=== PATIENT | female | born 1945 | race Caucasian/White ===

== ENCOUNTER 2023-02-25 13:02 | Outpatient (OUT) | payer MEDICARE, SELFPAY ==
--- NOTE | 2023-02-25 13:20 | XR_ITS ---
[place] [address] Patient Name: FERCHO MALONE MRN: [id number] date: 1945 Sex: F Assigned Patient Location: [facility] Current Patient Location: [facility] Accession/Order Number: [id number] Exam Date: 02/25/2023 13:30 Report Date: 02/26/2023 10:26 At the request of: CHARLIE BLAKE Procedure: XR thoracic spine 2V EXAMINATION: XR thoracic spine 2V, XR lumbar spine min 4V HISTORY: Left Hip Pain, Left Lower Back Pain COMPARISON: No relevant comparison available. FINDINGS: BONES: Mild left convex curvature of thoracic spine in mild right convex curvature of lumbar spine. No fracture or spondylolisthesis. Mild degenerative facet arthropathy L3-4 through L5-S1. DISC SPACES: Multilevel mild degenerative disc disease of mid and lower thoracic spine. Moderate narrowing L5-S1. PARASPINOUS: Negative. No paraspinous abnormality is seen. OTHER: Negative. XR/XR thoracic spine 2V IMPRESSION: 1. Mild S-shaped curvature of the thoracic lumbar spine. 2. Mild degenerative disc disease of mid and lower thoracic spine; nonspecific. 3. L5-S1 moderate degenerative disc disease and mild degenerative facet arthropathy. Consider MRI for further evaluation. Electronically authenticated by: RUBEN ALAN Date: 02/26/2023 10:26
--- NOTE | 2023-02-25 13:20 | XR_ITS ---
The [place] [address] Patient Name: FERCHO MALONE MRN: [id number] date: 1945 Sex: F Assigned Patient Location: [facility] Current Patient Location: [facility] Accession/Order Number: [id number] Exam Date: 02/25/2023 13:30 Report Date: 02/26/2023 10:26 At the request of: CHARLIE BLAKE Procedure: XR lumbar spine min 4V EXAMINATION: XR thoracic spine 2V, XR lumbar spine min 4V HISTORY: Left Hip Pain, Left Lower Back Pain COMPARISON: No relevant comparison available. FINDINGS: BONES: Mild left convex curvature of thoracic spine in mild right convex curvature of lumbar spine. No fracture or spondylolisthesis. Mild degenerative facet arthropathy L3-4 through L5-S1. DISC SPACES: Multilevel mild degenerative disc disease of mid and lower thoracic spine. Moderate narrowing L5-S1. PARASPINOUS: Negative. No paraspinous abnormality is seen. OTHER: Negative. XR/XR lumbar spine min 4V IMPRESSION: 1. Mild S-shaped curvature of the thoracic lumbar spine. 2. Mild degenerative disc disease of mid and lower thoracic spine; nonspecific. 3. L5-S1 moderate degenerative disc disease and mild degenerative facet arthropathy. Consider MRI for further evaluation. Electronically authenticated by: RUBEN ALAN Date: 02/26/2023 10:26
--- NOTE | 2023-02-25 13:20 | XR_ITS ---
The [address] [address] Patient Name: FERCHO MALONE MRN: [id number] date: 1945 Sex: F Assigned Patient Location: [facility] Current Patient Location: [facility] Accession/Order Number: [id number] Exam Date: 02/25/2023 13:30 Report Date: 02/26/2023 10:20 At the request of: CHARLIE BLAKE Procedure: XR hip LT min 2V PROCEDURE: XR hip LT min 2V HISTORY: Left Hip Pain, Left Lower Back Pain , chronic COMPARISON: None. FINDINGS: BONES:Prominent lateral extension versus degenerative osteophytes involving the superior rim of acetabulum. No fracture, dislocation, or significant joint space narrowing. Unremarkable femoral head. SOFT TISSUES:No visible soft tissue swelling. EFFUSION:None visible. OTHER: Negative. XR/XR hip LT min 2V IMPRESSION: 1. Prominent roof of acetabulum protruding laterally versus osteophytes, which may cause impingement during abduction. 2. No significant joint space narrowing or articular surface irregularity. Electronically authenticated by: RUBEN ALAN Date: 02/26/2023 10:20
== END 2023-02-25 13:03 | disposition home or self-care (01) ==
LOC: RAD 13:10
PROVIDERS: PCP Nurse Practitioner; Visit Provider Nurse Practitioner
DX: M25.552 Pain in left hip (principal); M54.42 Lumbago with sciatica, left side; M51.34 Other intervertebral disc degeneration, thoracic region; M51.36 Other intervertebral disc degeneration, lumbar region
CPT/HCPCS: 72070; 72110; 73502

== ENCOUNTER 2023-02-26 10:50 | Outpatient (RCR) | payer MEDICARE, SELFPAY | END 2023-04-01 16:59 | disposition home or self-care (01) | LOC: PT 10:50 | PROVIDERS: PCP Nurse Practitioner; Visit Provider Nurse Practitioner | DX: M25.552 Pain in left hip (principal); M54.32 Sciatica, left side | CPT/HCPCS: 97110; 97162; 97530 ==

== ENCOUNTER 2023-05-05 07:22 | Observation (INO) | payer MEDICARE, SELFPAY ==
[2023-05-05] VITALS (15 sets, daily range): BP systolic 131–155; BP diastolic 57–92; PULSE 73–103; RESP 13–24; TEMP 36.3–36.8; O2SAT 93–100; BMI 20.3
--- NOTE | 2023-05-05 07:46 | CT_ITS ---
[address] [address] Patient Name: FERCHO MALONE MRN: [id number] date: 1945 Sex: F Assigned Patient Location: ER Current Patient Location: [facility] Accession/Order Number: [id number] Exam Date: 05/05/2023 08:00 Report Date: 05/05/2023 08:23 At the request of: TODD MAHONEY Procedure: CT lumbar spine wo con Exam: Radiographs: CT lumbar spine wo con, XR chest 1V Reason for exam: left leg weak for months Comparison: None CT/CT lumbar spine wo con IMPRESSION: Unremarkable chest x-ray. EXAM: CT scan of the lumbar spine without contrast. Dose reduction technique used: Automated exposure control and/or adjustment of the mA and/or kV according to patient size and/or use of iterative reconstruction technique. REASON FOR EXAM: left leg weak for months COMPARISON: None FINDINGS: L2 superior endplate compression fracture with minimal height loss is age indeterminate. No other lumbar spine fractures. No lumbar spine malalignment. Degenerative changes throughout the lumbar spine with relatively preserved intervertebral disc heights. Multilevel bilateral mild neural foraminal stenoses. No high-grade neural foraminal stenoses. Multilevel spinal canal stenoses that are mild or moderate. No definite severe spinal canal stenoses. Horseshoe kidney. Remainder unremarkable. IMPRESSION: Age indeterminate L2 superior endplate compression fracture, correlate clinically. Electronically authenticated by: BRIGIDA COSTELLO Date: 05/05/2023 08:23
--- NOTE | 2023-05-05 07:46 | ECG_ITS ---
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
--- NOTE | 2023-05-05 07:46 | CT_ITS ---
The [address] [address] Patient Name: FERCHO MALONE MRN: [id number] date: 1945 Sex: F Assigned Patient Location: ER Current Patient Location: ER Accession/Order Number: [id number] Exam Date: 05/05/2023 08:00 Report Date: 05/05/2023 08:17 At the request of: TODD MAHONEY Procedure: CT head/brain wo con EXAM: CT head/brain wo con HISTORY: left leg week, months COMPARISON: None. TECHNIQUE: No IV contrast FINDINGS: The ventricles and basilar cisterns are within normal limits. No acute intra-axial or extra axial hemorrhage. No midline shift, mass effect or edema. The visualized paranasal sinuses are clear. The mastoid air cells are clear. The external and middle ear cavities are unremarkable. CT/CT head/brain wo con IMPRESSION: No acute hemorrhage Electronically authenticated by: KENYON SINGH Date: 05/05/2023 08:17
--- NOTE | 2023-05-05 07:47 | ED.GENADUL1 ---
HPI - General Adult General Chief complaint: Neuro Symptoms/Deficit Stated complaint: CAN'T WALK Time Seen by Provider: 05/05/23 07:34 Source: patient Mode of arrival: Wheelchair History of Present Illness HPI narrative: 78-year-old female presents for left leg weakness. This has been progressive for months. At the beginning of the summer she was cutting her own grass. Her left leg started to get weak and then she was using a cane. A few weeks later she's been using a walker and now she really can't get around even with the walker. She lives by herself and her neighbor brought her in. The patient has had some medical care for this issue. She saw her PCP who ordered some x-rays of her back and prescribed physical therapy which she did. She also saw a neurologist. She has not had a CAT scan of her head or her back. She doesn't complain of pain in her head back or leg or any numbness, it's just weak. She states she can't lift her leg up and is now unable to walk. Related Data Allergies Allergy/AdvReac Type Severity Reaction Status Date / Time Penicillins AdvReac Unknown Verified 05/05/23 07:32 Review of Systems ROS Narrative A ten point review of systems is negative except as noted above. Exam Narrative Exam Narrative: Nurses note and vital signs reviewed and patient is not hypoxic. General: The patient appears well and in no apparent distress. Patient is resting comfortably on cart. Skin: Warm, dry, no pallor noted. There is no rash noted. Head: Normocephalic, atraumatic Eye: Normal conjunctiva, no drainage Ears, Nose, Mouth, and Throat: oral mucosa is moist. Nares patent. Cardiovascular: Regular Rate and Rhythm Respiratory: Patient is in no distress, no accessory muscle use, lungs are clear to auscultation, no wheezing, rales or rhonchi Back: non-tender GI: soft and nontender Musculoskeletal: The patient has no evidence of calf tenderness, no pitting edema, symmetrical pulses noted bilaterally Neurological: A&O x4, normal speech; hand grasp, biceps, and triceps strength is symmetric. Plantar flexion and dorsiflexion of the right foot is normal. She was unable to lift completely her right leg off of the bed though with effort she was able to contract the muscles and begin to lift her foot off the bed. She has no plantar flexion of the left foot and she has very minimal dorsiflexion of the left foot. She cannot lift her left leg up off the bed at all. Psychiatric: Cooperative Constitutional Vital Signs, click to edit/add: Last Vital Signs Temp 98.2 F 05/05/23 07:28 Pulse 81 05/05/23 08:10 Resp 24 05/05/23 08:10 BP 144/81 H 05/05/23 07:31 Pulse Ox 98 05/05/23 07:31 O2 Del Method Room Air 05/05/23 08:17 Course Vital Signs Vital signs: Vital Signs Temperature 98.2 F 05/05/23 07:28 Pulse Rate 103 H 05/05/23 07:28 Respiratory Rate 16 05/05/23 07:28 Blood Pressure 144/81 H 05/05/23 07:28 Pulse Oximetry 98 05/05/23 07:28 Oxygen Delivery Method Room Air 05/05/23 07:28 Temperature 98.2 F 05/05/23 07:28 Pulse Rate 81 05/05/23 08:10 Respiratory Rate 24 05/05/23 08:10 Blood Pressure 144/81 H 05/05/23 07:31 Pulse Oximetry 98 05/05/23 07:31 Oxygen Delivery Method Room Air 05/05/23 08:17 Medical Decision Making MDM Narrative Medical decision making narrative: the patient's workup including CT of the brain and CT of the lumbar spines show no definite acute findings. L2 compression fractures noted but this should not be causing her left leg profound weakness. It's gotten to the point where she cannot walk and she is just dragging that leg and she lives by herself. She is being admitted for further workup. Findings are discussed witth the patient. Differential Diagnosis Differential Diagnosis: intracranial mass, spinal cord compression, peripheral neuropathy Lab Data Lab results reviewed: Yes I reviewed the patient's lab results Labs: Lab Results 05/05/23 Range/Units 07:55 WBC 10.6 (4.0-11.0) 10^3/uL RBC 4.20 (4.20-5.40) 10^6/uL Hgb 12.5 (12.0-16.0) g/dL Hct 38.8 (36.0-48.0) % MCV 92.4 (81.0-99.0) fL MCH 29.8 (26.7-34.0) pg MCHC 32.2 (29.9-35.2) g/dL RDW 12.9 (11.0-15.0) % Plt Count 273 (150-450) 10^3/uL MPV 9.2 L (9.5-13.5) fL Neut % (Auto) 67.3 (43.0-75.0) % Lymph % (Auto) 24.0 (20.5-60.0) % [place] % (Auto) 5.0 (1.7-12.0) % Eos % (Auto) 2.8 (0.9-7.0) % Baso % (Auto) 0.6 (0.2-2.0) % Neut # (Auto) 7.1 H (1.4-6.5) 10^3/uL Lymph # (Auto) 2.5 (1.2-3.8) 10^3/uL [place] # (Auto) 0.5 (0.3-0.8) 10^3/uL Eos # (Auto) 0.3 (0.0-0.7) 10^3/uL Baso # (Auto) 0.1 (0.0-0.1) 10^3/uL Abs Immat Gran (auto) 0.03 (0.00-0.03) 10^3/uL Imm/Tot Granulo (auto) 0.3 (0.0-0.5) % Sodium 139 (136-145) mmol/L Potassium 3.4 L (3.5-5.1) mmol/L Chloride 103 (98-107) mmol/L Carbon Dioxide 29.0 (21.0-32.0) mmol/L Anion Gap 10.4 BUN 11.0 (7.0-18.0) mg/dL Creatinine 0.67 (0.55-1.02) mg/dL Est GFR ( Amer) >60 (>=60) Est GFR (Non-Af Amer) >60 (>=60) BUN/Creatinine Ratio 16.4 Glucose 112 H (74-106) mg/dL Calcium 9.3 (8.5-10.1) mg/dL Imaging Data CT brain, CT lumbar spine: Radiologist's impression: Exam: Radiographs: CT lumbar spine wo con, XR chest 1V Reason for exam: left leg weak for months Comparison: None IMPRESSION: Unremarkable chest x-ray. EXAM: CT scan of the lumbar spine without contrast. Dose reduction technique used: Automated exposure control and/or adjustment of the mA and/or kV according to patient size and/or use of iterative reconstruction technique. REASON FOR EXAM: left leg weak for months COMPARISON: None FINDINGS: L2 superior endplate compression fracture with minimal height loss is age indeterminate. No other lumbar spine fractures. No lumbar spine malalignment. Degenerative changes throughout the lumbar spine with relatively preserved intervertebral disc heights. Multilevel bilateral mild neural foraminal stenoses. No high-grade neural foraminal stenoses. Multilevel spinal canal stenoses that are mild or moderate. No definite severe spinal canal stenoses. Horseshoe kidney. Remainder unremarkable. IMPRESSION: Age indeterminate L2 superior endplate compression fracture, correlate clinically. Electronically authenticated by: BRIGIDA COSTELLO Date: 05/05/2023 08:23 Procedure: CT head/brain wo con EXAM: CT head/brain wo con HISTORY: left leg week, months COMPARISON: None. TECHNIQUE: No IV contrast FINDINGS: The ventricles and basilar cisterns are within normal limits. No acute intra-axial or extra axial hemorrhage. No midline shift, mass effect or edema. The visualized paranasal sinuses are clear. The mastoid air cells are clear. The external and middle ear cavities are unremarkable. IMPRESSION: No acute hemorrhage Electronically authenticated by: KENYON SINGH Date: 05/05/2023 08:17 Discharge Plan Discharge Chief Complaint: Neuro Symptoms/Deficit Clinical Impression: Left leg weakness Patient Disposition: Admitted as Observation Time of Disposition Decision: 09:44 Condition: Good Referrals: CHARLIE BLAKE [Primary Care Provider] - 1 week
[2023-05-05 08:02] LABS: Basophils Absolute Auto 0.1 10^3/uL (0.0-0.1); Basophils Percent Auto 0.6 % (0.2-2.0); Eosinophils Absolute Auto 0.3 10^3/uL (0.0-0.7); Eosinophils Percent Auto 2.8 % (0.9-7.0); Hematocrit 38.8 % (36.0-48.0); Hemoglobin 12.5 g/dL (12.0-16.0); Immature Granulocytes Abs Auto 0.03 10^3/uL (0.00-0.03); Immature Granulocytes Pct Auto 0.3 % (0.0-0.5); Lymphocytes Absolute Auto 2.5 10^3/uL (1.2-3.8); Mean Corpuscular HGB Conc 32.2 g/dL (29.9-35.2); Mean Corpuscular Hemoglobin 29.8 pg (26.7-34.0); Mean Corpuscular Volume 92.4 fL (81.0-99.0); Mean Platelet Volume 9.2 fL (9.5-13.5); Monocytes Absolute Auto 0.5 10^3/uL (0.3-0.8); Neutrophils Absolute Auto 7.1 10^3/uL (1.4-6.5); Neutrophils Percent Auto 67.3 % (43.0-75.0); Platelet Count 273 10^3/uL (150-450); Red Cell Distribution Width 12.9 % (11.0-15.0); White Blood Count 10.6 10^3/uL (4.0-11.0)
[2023-05-05 08:10] LABS: Anion Gap 10.4; BUN Creatinine Ratio 16.4; Calcium 9.3 mg/dL (8.5-10.1); Chloride 103 mmol/L (98-107); Estimated GFR (African America >60 (>=60); Estimated GFR (Non-African Ame >60 (>=60); Glucose 112 mg/dL (74-106); Potassium 3.4 mmol/L (3.5-5.1); Sodium 139 mmol/L (136-145)
--- NOTE | 2023-05-05 10:55 | MR_ITS ---
The [address] [address] Patient Name: FERCHO MALONE MRN: [id number] date: 1945 Sex: F Assigned Patient Location: [facility] Current Patient Location: [facility] Accession/Order Number: [id number] Exam Date: 05/05/2023 14:00 Report Date: 05/05/2023 15:43 At the request of: SHAIKH ISHAN Procedure: MR lumbar spine wo con EXAM: MR scan lumbar spine. TECHNIQUE: Sagittal T1, JUANA T2, STIR, axial T1 and T2 images without contrast performed through the lumbar spine. COMPARISON: CT scan performed 05/05/2023. HISTORY: Low back pain, left leg weakness FINDINGS: The vertebral bodies are normal in height and alignment. Disc spaces are maintained. Low signal T1 and high signal T2 middle column of the L5 vertebral body abutting the superior endplate. This measures 18 mm in transverse diameter. Same lesion measures approximately 10 mm in diameter and is partially calcified on CT scan performed 05/05/2023. Minimal depression of the superior endplate of L2 with minimal marrow edema. The vertebral bodies and disc spaces are otherwise normal in appearance. The conus lies at T12 and is normal. Foraminal narrowing to the right of midline at L5-S1. L5-S1: Disc bulge more prominent to the right with right foraminal narrowing. This may be a means of irritation of the right L5 nerve root. L4-L5: Facet arthropathy, central disc protrusion with mild to moderate effacement thecal sac. L3-L4: Facet arthropathy and mild effacement thecal sac. L2-L3: Normal. L1-L2: Minimal disc bulge without stenosis. The paraspinal soft tissues are normal. MR/MR lumbar spine wo con IMPRESSION: 1. Signal abnormality involving the middle column of the L5 vertebral body. This is nonspecific in appearance, may represent hemangioma. Consideration to nuclear medicine bone scan in further evaluation. 2. Minimal depression superior endplate of L2 with minimal marrow edema. 3. Right foraminal narrowing L5-S1. No evidence of central spinal canal stenosis. Electronically authenticated by: Christel SELLERS Date: 05/05/2023 15:43
[2023-05-05 11:38] LABS: Creatine Kinase 26 U/L (26-192); Thyroid Stimulating Hormone 5.651 uIU/mL (0.358-3.740)
--- NOTE | 2023-05-05 11:46 | PM.HP ---
H&P: HPI History of Present Illness Chief complaint: Left lower extremity weakness Narrative: 78 y o female reports about 4 months ago she started to experience radicular symptoms -tingling/pain in her left lower extremity. Her symptoms continued to get worse and she noticed progressive weakness in her left LE. She initially started to use cane to ambulate, then started to require a walker to ambulate but for past one week, she has not been able to ambulate even with a walker. She was brought over to the hospital by her neighbor who noticed that patient has not been seen outside for a while and when she visited her home - she saw her dragging her left leg while trying to maintain balance with a walker. She convinced her to come to ED where patient was admitted earlier this morning. Patient reports mild left sided hip pain but no sig pain/tenderness in her back. She also denies hx of back trauma or surgery. Interestingly, she reports her neurological symptoms trended upward rather than downward as one would typically see in lumbar radiculopathy. Reports constipation, weight loss of 30 lbs over past 2 weeks. no fecal/urinary incontinence and denies any numbness. No other neurological symptoms reported by patient. Review of Systems ROS Status of ROS 10 or more systems reviewed and unremarkable except as noted in history and below [facility] Medical History (Updated 05/05/23 @ 11:54 by Shaikh Ella MD) Surgical History Social History Within the past year, how often did you have a drink containing alcohol: monthly or less Smoking status: Never smoker Non-prescribed substance use: denies use Do you think of yourself as: straight/heterosexual Gender Identity: female Meds Home Medications and Allergies Home Medications Medication Instructions Recorded Confirmed Type ascorbic acid (vitamin C) 500 mg 500 mg PO DAILY 05/05/23 05/05/23 History tablet calcium carbonate 500 mg calcium 500 mg PO DAILY 05/05/23 05/05/23 History (1,250 mg) tablet cholecalciferol (vitamin D3) 50 2,000 unit PO DAILY 05/05/23 05/05/23 History mcg (2,000 unit) capsule glimepiride 4 mg tablet 4 mg PO BID 05/05/23 05/05/23 History hydrocodone 5 mg-acetaminophen 325 1 tab PO Q4H PRN pain 05/05/23 05/05/23 History mg tablet insulin degludec 200 unit/mL (3 10 unit subcut DAILY 05/05/23 05/05/23 History mL) subcutaneous pen (Tresiba FlexTouch U-200 insulin) levothyroxine 200 mcg tablet 200 mcg PO DAILY 05/05/23 05/05/23 History losartan 50 mg tablet 50 mg PO DAILY 05/05/23 05/05/23 History pioglitazone 15 mg tablet 15 mg PO DAILY 05/05/23 05/05/23 History rosuvastatin 10 mg tablet 10 mg PO DAILY 05/05/23 05/05/23 History Allergies Allergy/AdvReac Type Severity Reaction Status Date / Time Penicillins AdvReac Unknown Verified 05/05/23 07:32 Exam Constitutional Vital Signs, click to edit/add: Last Vital Signs Temp 97.5 F L 05/05/23 09:34 Pulse 73 05/05/23 09:34 Resp 16 05/05/23 11:02 BP 155/90 H 05/05/23 09:34 Pulse Ox 96 05/05/23 11:02 O2 Del Method Room Air 05/05/23 11:02 Documenting provider has reviewed patient's vital signs: yes Common normals: no apparent distress and oriented x3 General appearance: cooperative [facility] Common normals: normocephalic and head/scalp atraumatic Head and scalp: normocephalic and atraumatic Eye Common normals: conjunctivae normal and no scleral icterus Conjunctiva: conjunctiva(e) normal Respiratory Common normals: normal respiratory effort and clear to auscultation bilaterally Effort & inspection: able to speak in complete sentences Auscultation: clear to auscultation bilaterally Cardio Common normals: regular rate, S1 normal heart sound and S2 normal heart sound Rate: regular rate Heart sounds: S1 normal and S2 normal GI Common normals: Normal to inspection, nondistended, normoactive bowel sounds present, soft to palpation, non-tender and no hepatosplenomegaly Palpation: soft and no hepatosplenomegaly Extremity Common normals: no clubbing, cyanosis or edema Neuro Common normals: oriented x3 and no sensory deficits noted Sensorium/orientation: awake and alert Meningeal signs: no meningeal signs Speech: speech normal Gait (neuro): unable to assess gait Motor exam: strength abnormal left lower extremity and other Other: Foot dorsiflexion and plantar flexion is 0/5, Knee flexion is 2-3/5, knee extension is 3-4/5 Hip flexion is 4/5, extension is 3-4/5 Suspect L5-S2 nerve roots involvement. Psych Common normals: mental status grossly normal, denies hallucinations, denies homicidal ideation and denies suicidal ideation Results Labs Labs: Short CBC 05/05/23 Range/Units 07:55 WBC 10.6 (4.0-11.0) 10^3/uL Hgb 12.5 (12.0-16.0) g/dL Hct 38.8 (36.0-48.0) % Plt Count 273 (150-450) 10^3/uL BMP 05/05/23 07:55 Sodium 139 Potassium 3.4 L Chloride 103 Carbon Dioxide 29.0 BUN 11.0 Creatinine 0.67 Glucose 112 H Calcium 9.3 Cardiac Enzymes 05/05/23 Range/Units 10:55 Total Creatine Kinase 26 (26-192) U/L Assessment and Plan Assessment and Plan (1) Left leg weakness: Assessment and Plan: Lower extremity weakness in L5-S2 myotomes based on exam. It appears to me that her weakness is ascending and there are no neurological symptoms other than left LE weakness that has progressively worsened over past 3-4 months. This could be due to lumbar plexopathy and thus - will require an MRI LS spine to delineate that. Other possible explanation could be myopathies - order CP, Aldolase and TSH. PT/OT eval and rx. MRI LS spine ordered. (2) HTN (hypertension): Assessment and Plan: Well controlled. C/w losartan. (3) HLD (hyperlipidemia): Assessment and Plan: Cw/ statin (4) Hypothyroidism: Assessment and Plan: TSH above goal Not changing her dose. Defer to PCP (5) Type 2 diabetes mellitus: Assessment and Plan: c/w SSI, lantus 10 units. Monitor FSBS.
[2023-05-05] MEDS: ASCORBIC ACID 500 MG TABLET PO (11:59)
[2023-05-05] MEDS: LEVOTHYROXINE SODIUM 100 MCG TABLET 200 MCG PO (11:59)
[2023-05-05] MEDS: LOSARTAN POTASSIUM 50 MG TABLET PO (11:59)
[2023-05-05] MEDS: OXYCODONE HCL 5 MG TABLET PO ×2 (11:59→21:49)
[2023-05-05] MEDS: CALCIUM CARBONATE 500 MG (200MG ELEMENTAL) TAB CHEW PO (11:59)
[2023-05-05] MEDS: CHOLECALCIFEROL (VITAMIN D3) 25 MCG/1,000 UNITS TABLET 50 MCG PO (11:59)
--- NOTE | 2023-05-05 11:59 | CM.NOTE ---
Rounds made with Dr. Jaramillo, discussed plan of care with pt and need for further work-up and testing. PT and OT will evaluate pt today.
--- NOTE | 2023-05-05 12:10 | SWNOTE1 ---
SW met with pt to discuss dc needs. Pt lives at home by herself, her neighbor can help her as needed. Pt moved here from [place] about 3 years ago. Pt had covid back at the end of January. Since then her sciatic nerve had been bothering here and it has affected the use of her left leg. She can move it around while laying in bed, just has trouble walking. SW and pt spoke about going to rehab for a short time to build her strength up. Pt is agreeable. SW shared the star rating list from medicare.gov and she would like [facility] as her first choice and [facility] as her second. SW will send referral.
--- NOTE | 2023-05-05 12:13 | SWNOTE1 ---
Pt is a precert.
[2023-05-05 12:19] LABS: Glucometer 102 mg/dL (74-106)
--- NOTE | 2023-05-05 12:23 | SWNOTE1 ---
SW did speak with physical therapy and someone will be over around 1:00, physical therapy will also notify OT.
--- NOTE | 2023-05-05 14:05 | SWNOTE1 ---
[facility] is able to accept. PT/OT notes sent for precert to be started.
[2023-05-05 16:02] LABS: Glucometer 147 mg/dL (74-106)
[2023-05-05] MEDS: ENOXAPARIN SODIUM 40 MG/0.4 ML SYRINGE SUBQ (16:34)
[2023-05-05 20:46] LABS: Glucometer 167 mg/dL (74-106)
[2023-05-05] MEDS: ATORVASTATIN CALCIUM 40 MG TABLET PO (21:49)
[2023-05-05] MEDS: INSULIN DETEMIR 300 UNIT/3 ML INSULN.PEN 10 UNIT SUBQ (22:22)
[2023-05-05] MEDS: INSULIN ASPART 300 UNIT/3 ML PEN SUBQ (22:22)
[2023-05-06 05:24] VITALS: BP 157/84; PULSE 86; RESP 18; TEMP 36.7; O2SAT 95
[2023-05-06] MEDS: LEVOTHYROXINE SODIUM 100 MCG TABLET 200 MCG PO (06:45)
[2023-05-06 08:04] LABS: Erythrocyte Sedimentation Rate 59 mm/hr (<=30)
[2023-05-06 09:08] LABS: C Reactive Protein 0.7 mg/dL (<=1.0)
[2023-05-06 09:17] LABS: Estimated Average Glucose 123 mg/dL; Glycohemoglobin A1C 5.9 % (4.5-6.2)
[2023-05-06] MEDS: CALCIUM CARBONATE 500 MG (200MG ELEMENTAL) TAB CHEW PO (09:31)
[2023-05-06] MEDS: ASCORBIC ACID 500 MG TABLET PO (09:31)
[2023-05-06] MEDS: LOSARTAN POTASSIUM 50 MG TABLET PO (09:31)
[2023-05-06] MEDS: CHOLECALCIFEROL (VITAMIN D3) 25 MCG/1,000 UNITS TABLET 50 MCG PO (09:32)
[2023-05-06 10:32] VITALS: O2SAT 94
[2023-05-06 11:26] LABS: Glucometer 122 mg/dL (74-106)
--- NOTE | 2023-05-06 11:33 | PM.IMPN1 ---
Progress Note: A&P Assessment and Plan (1) Left leg weakness: Assessment and Plan: No sig abnormality noted on MRI Unclear etiology. Outpatient EMG/NCV shows distal muscle weakness that is c/w physical exam She is scheduled for outpatient UE EMG/NCV A1C at goal, CPK is normal, normal B12. Check UPEP, SPEP as per rec by Neuology. Elevated ESR noted. D/w Neurology - patient does not need extensive inpatient w/u and can f/u as outpatient PT/OT eval, awaitng pre cert for rehab. (2) HTN (hypertension): Assessment and Plan: C/w home meds (3) HLD (hyperlipidemia): Assessment and Plan: C/w statin (4) Hypothyroidism: Assessment and Plan: C/w same dose of Levothyroxine for now. TSH mildly elevated above goal. Will need repeat TSH (5) Type 2 diabetes mellitus: Assessment and Plan: C/w basal/bolus insulin Internal Medicine - PN: Subj Subjective Interval history: Seen and examined. No overnight events. No new complaints Exam Constitutional Vital Signs, click to edit/add: Last Vital Signs Temp 98.1 F 05/06/23 05:24 Pulse 86 05/06/23 05:24 Resp 18 05/06/23 05:24 BP 157/84 H 05/06/23 05:24 Pulse Ox 94 L 05/06/23 10:32 O2 Del Method Room Air 05/06/23 10:32 Documenting provider has reviewed patient's vital signs: yes Common normals: no apparent distress and oriented x3 General appearance: cooperative HENMT Common normals: normocephalic and head/scalp atraumatic Head and scalp: normocephalic and atraumatic Eye Common normals: conjunctivae normal and no scleral icterus Conjunctiva: conjunctiva(e) normal Respiratory Common normals: normal respiratory effort and clear to auscultation bilaterally Effort & inspection: able to speak in complete sentences Auscultation: clear to auscultation bilaterally Cardio Common normals: regular rate, S1 normal heart sound and S2 normal heart sound Rate: regular rate Heart sounds: S1 normal and S2 normal GI Common normals: Normal to inspection, nondistended, normoactive bowel sounds present, soft to palpation, non-tender and no hepatosplenomegaly Palpation: soft and no hepatosplenomegaly Extremity Common normals: no clubbing, cyanosis or edema Neuro Common normals: oriented x3 and no sensory deficits noted Sensorium/orientation: awake and alert Meningeal signs: no meningeal signs Speech: speech normal Gait (neuro): unable to assess gait Motor exam: strength abnormal and other Other: Foot dorsiflexion and plantar flexion is 0/5, Knee flexion is 2-3/5, knee extension is 3-4/5 Hip flexion is 4/5, extension is 3-4/5 Suspect L5-S2 nerve roots involvement. Psych Common normals: mental status grossly normal, denies hallucinations, denies homicidal ideation and denies suicidal ideation Internal Medicine - PN: Obj Da Labs Labs: Laboratory Results - last 24 hr 05/05/23 05/05/23 05/05/23 10:55 12:06 15:58 ESR Estimat Average Glucose Hemoglobin A1c Total Creatine Kinase 26 C-Reactive Protein Vitamin B12 TSH 5.651 H POC Glucose 102 147 H 05/05/23 05/06/23 05/06/23 20:31 07:49 11:25 ESR 59 H Estimat Average Glucose 123 Hemoglobin A1c 5.9 Total Creatine Kinase C-Reactive Protein 0.7 Vitamin B12 271.0 TSH POC Glucose 167 H 122 H
--- NOTE | 2023-05-06 11:43 | CM.NOTE ---
Rounds made with Dr. Jaramillo, pt awaiting precert for skilled therapy upon discharge.
--- NOTE | 2023-05-06 11:53 | CM.NOTE ---
Medicare Outpatient Observation Notice discussed with pt, pt verbalizes understanding and signs paper. Original given to pt and copy placed on pt's chart.
--- NOTE | 2023-05-06 12:15 | REH.PTDLY ---
Physical Therapy Daily Note PT Daily Note/Assess Start: 05/06/23 12:02 Freq: Status: Active Protocol: Document 05/06/23 12:03 RUBI (Rec: 05/06/23 12:14 RUBI [id number]) Physical Therapy Daily Note/Assessment Time In 10:43 Time Out 11:03 Subjective No pain at rest, pt is lying in bed upon arrival. Agreeable to therapy. Therapeutic Activity Minutes (minutes) 18 Therapeutic Activity Units 1 Bed Mobility Ability Independent Chair Transfer Ability Contact Guard Assist Therapeutic Activity Comments Pt needs assistance donning L shoe. CGA with sit to stand transfers 3x in a row. Gait training with RW CGA with cues for pt on exaggerating hip flexion so foot clears ground due to foot drop. Pt ambulates for 70 feet x2 with standing rest break. Pain increasing in R knee and pt having increased fatigue last 30 feet of gait. Pt has to take L LE and lift it into bed using arms post rx. Bed alarm on post rx as pt is a fall risk. Total Therapy Minutes 18 Total Physical Therapy Units 1 Daily Note Summary Pt able to ambulate further, but as a result she has increased discomfort in L leg around knee. Pt still unable to actively move L foot into DF. Pt has to focus with gait to avoid foot or toes catching . Pt's place is to go skilled upon DC to hopefully gain strength and movement in L LE.
--- NOTE | 2023-05-06 13:37 | SWNOTE1 ---
updates sent to [facility]
[2023-05-06 14:11] LABS: Aldolase 5.4 U/L (3.3-10.3)
[2023-05-06 14:46] VITALS: BP 105/70; PULSE 88; RESP 18; TEMP 36.8; O2SAT 97
[2023-05-06 17:42] LABS: Glucometer 196 mg/dL (74-106)
[2023-05-06] MEDS: ENOXAPARIN SODIUM 40 MG/0.4 ML SYRINGE SUBQ (18:14)
[2023-05-06 18:19] VITALS: BP 132/81; PULSE 109; RESP 18; TEMP 36.8; O2SAT 94
[2023-05-06 20:00] VITALS: BP 136/86; PULSE 96; RESP 18; TEMP 36.6; O2SAT 95
[2023-05-06 20:07] LABS: Glucometer 141 mg/dL (74-106)
[2023-05-06 20:34] VITALS: O2SAT 98
[2023-05-06] MEDS: ATORVASTATIN CALCIUM 40 MG TABLET PO (20:42)
[2023-05-06] MEDS: INSULIN DETEMIR 300 UNIT/3 ML INSULN.PEN 10 UNIT SUBQ (21:33)
[2023-05-06] MEDS: INSULIN ASPART 300 UNIT/3 ML PEN SUBQ (21:34)
[2023-05-06] MEDS: OXYCODONE HCL 5 MG TABLET PO (23:11)
[2023-05-07] MEDS: LEVOTHYROXINE SODIUM 100 MCG TABLET 200 MCG PO (06:05)
[2023-05-07 06:09] VITALS: BP 144/83; PULSE 88; RESP 18; TEMP 36.6; O2SAT 95
[2023-05-07 07:42] LABS: Glucometer 81 mg/dL (74-106)
[2023-05-07] MEDS: CHOLECALCIFEROL (VITAMIN D3) 25 MCG/1,000 UNITS TABLET 50 MCG PO (08:58)
[2023-05-07] MEDS: CALCIUM CARBONATE 500 MG (200MG ELEMENTAL) TAB CHEW PO (08:58)
[2023-05-07] MEDS: ASCORBIC ACID 500 MG TABLET PO (08:58)
[2023-05-07] MEDS: LOSARTAN POTASSIUM 50 MG TABLET PO (08:58)
--- NOTE | 2023-05-07 09:08 | SWNOTE1 ---
Pt is approved to go to [facility].
--- NOTE | 2023-05-07 10:44 | SWNOTE1 ---
Pt is approved and ready for discharge. [facility] set up trips and they will be here between 12:30 and 12:45. SW let [facility], pt, and nursing know time. SW to send orders once they are in. Pt is going to [facility] skilled. SW completed HENS.
[2023-05-07 11:17] LABS: Glucometer 199 mg/dL (74-106)
--- NOTE | 2023-05-07 11:23 | PT.DAILY ---
Physical Therapy Daily Note PT Daily Note/Assess Start: 05/06/23 12:02 Freq: Status: Active Protocol: Document 05/07/23 11:18 TONYGUEROLUBA (Rec: 05/07/23 11:23 TONYSILVIA [id number]) Physical Therapy Daily Note/Assessment Time In/Time Out Time In 09:48 Time Out 10:07 Pain In Pain N/A Pain Out Pain N/A Subjective Subjective Pt supine upon arrival. Agrees to PT. Planned dc this afternoon to [facility]. Denies pain currently but did have some pain in L LE over night. Therapeutic Activity Time Therapeutic Activity Minutes (minutes) 15 Therapeutic Activity Units 1 Therapeutic Activity Treatment Bed Mobility Ability Standby Assistance Chair Transfer Ability Standby Assistance Therapeutic Activity Comments Pt completes supine>sit transfer to sit EOB while she needs to assist L LE off bed using UEs. Pt sits EOB unsupported without LOB. Sit> stand to RW SBA. Pt amb in damian 100'x2 - 1x standing rest break. Pt needs vc to try to avoid dragging L foot and to focus on knee flexion with gait. Pt returned to room. Sits EOB and dresses her upper body herself while sitting EOB - requires set up only for this. Remains sitting EOB on phone upon completion with call light in reach. Total Physical Therapy Time Total Therapy Minutes 15 Total Physical Therapy Units 1 Summary Daily Note Summary Improved gait endurance and transfer ability. IND with upper body dressing with set up needed.
--- NOTE | 2023-05-07 11:29 | PC.NURSE ---
Pts IV removed. Pt tolerated well. Catheter intact.
--- NOTE | 2023-05-07 11:41 | CM.NOTE ---
Rounds made with milton Hobson for discharge today to [facility] for skilled therapy.
[2023-05-07 12:23] VITALS: O2SAT 95
--- NOTE | 2023-05-07 12:55 | PM.DS1 ---
DS: Providers Provider Date of admission: 05/05/23 10:32 Primary care physician: CHARLIE BLAKE Consults: 05/05/23 09:35 Occupational Therapy Eval and Treat Routine Reason for consultation: WEAKNESS Physical Therapy Eval and Treat Routine Reason for consultation: WEAKNESS 05/06/23 07:39 Consult to TeleNeurology Routine Consulting Provider: Reason for consultation: Lef LE weakness Attending physician on discharge: Shaikh Ella Discharging clinician: Shaikh Ella Anticipated date of discharge: 05/07/23 DS: Diagnosis Discharge Diagnosis (1) Left leg weakness: Assessment and plan: Unclear etiology. No sig finding on MRI brain. Outpatient EMG/NCV revealed b/l distal sensorimotor abnormality and is scheduled for EMG/NCV UE as outpatient. 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 Normal B12, Folate, Aldolase, ,CPK, CRP but had elevated ESR. Hx of T2 DM but A1C is at goal. FATOUMATA was not resulted on day of d/c Patient was evaluated and received treatment by PT/OT daily and had considerable improvement in her functional status and was able to ambulate using her walker which she was unable to do so previously. (2) HTN (hypertension): Assessment and plan: C/w home medications (3) HLD (hyperlipidemia): Assessment and plan: C/w crestor. (4) Hypothyroidism: Assessment and plan: C/w Levothyroxine. TSH mildly elevated but patient already on 200 mcg Will need to recheck as outpatient. (5) Type 2 diabetes mellitus: Assessment and plan: Well controlled. C/w same regimen . DS: Summary Hospital Course Hospital Course: 78 y o female was admitted for progressive weakness in her left LE. She initially started to require cane to ambulate, then had to use a walker to ambulate but for one week prior to admission, she could not ambulate even with a walker. Patient had an MRI LS spine that did not reveal any sig abnormality that could explain her symptoms. Patient's case was d/w Neurology who recommended SPEP/UPEP but was in agreement that patient could be followed up as outpatient by Neurology and did not require inpatient w/u. She had an EMG/NCV a week prior to admission that showed b/l LE distal sensorimotor neuropathy and is scheduled as outpatient for UE EMG/NCV Patient's w/u did not reveal any sig finding and was unremarkable except for elevated ESR. We were unable to determine etiology for her symptoms for which she was asked to f/u with Neurology as outpatient. Due to her weakness, inability to ambulate, she was referred to acute rehab upon discharge and was accepted for placement at [facility]. Status at Discharge Functional status at discharge: uses cane/walker Overall status at discharge: patient is not back to baseline Time Spent with Patient Time attestation: Total time spent providing and/or coordinating discharge services: Exam Constitutional Vital Signs, click to edit/add: Last Vital Signs Temp 97.8 F 05/07/23 06:09 Pulse 88 05/07/23 06:09 Resp 18 05/07/23 06:09 BP 144/83 H 05/07/23 06:09 Pulse Ox 95 05/07/23 06:09 O2 Del Method Room Air 05/07/23 06:09 Documenting provider has reviewed patient's vital signs: yes Common normals: no apparent distress and oriented x3 General appearance: cooperative HENMT Common normals: normocephalic and head/scalp atraumatic Head and scalp: normocephalic and atraumatic Eye Common normals: conjunctivae normal and no scleral icterus Conjunctiva: conjunctiva(e) normal Respiratory Common normals: normal respiratory effort and clear to auscultation bilaterally Effort & inspection: able to speak in complete sentences Auscultation: clear to auscultation bilaterally Cardio Common normals: regular rate, S1 normal heart sound and S2 normal heart sound Rate: regular rate Heart sounds: S1 normal and S2 normal GI Common normals: Normal to inspection, nondistended, normoactive bowel sounds present, soft to palpation, non-tender and no hepatosplenomegaly Palpation: soft and no hepatosplenomegaly Extremity Common normals: no clubbing, cyanosis or edema Neuro Common normals: oriented x3 and no sensory deficits noted Sensorium/orientation: awake and alert Meningeal signs: no meningeal signs Speech: speech normal Gait (neuro): assistive device used walker Motor exam: strength abnormal and other Other: Foot dorsiflexion and plantar flexion is 0/5, Knee flexion is 2-3/5, knee extension is 3-4/5 Hip flexion is 4/5, extension is 3-4/5 Suspect L5-S2 nerve roots involvement. Psych Common normals: mental status grossly normal, denies hallucinations, denies homicidal ideation and denies suicidal ideation DS: Data Data Completed and Pending Labs on day of discharge: Labs from last 24 hours 05/07/23 05/07/23 05/06/23 11:16 07:26 20:06 Aldolase Folate POC Glucose 199 H 81 141 H 05/06/23 05/06/23 05/05/23 17:39 07:49 10:55 Aldolase 5.4 Folate 3.60 L POC Glucose 196 H Discharge Plan Discharge Disposition: er Inpatient Rehab Fac Condition: Good Discharge Medications: Continued ascorbic acid (vitamin C) 500 mg tablet 500 mg PO DAILY calcium carbonate 500 mg calcium (1,250 mg) tablet 500 mg PO DAILY cholecalciferol (vitamin D3) 50 mcg (2,000 unit) capsule 2,000 unit PO DAILY glimepiride 4 mg tablet 4 mg PO BID hydrocodone-acetaminophen 5-325 mg tablet 1 tab PO Q4H PRN (Reason: pain) insulin degludec [Tresiba FlexTouch U-200] 200 unit/mL (3 mL) insulin pen 10 unit SUBCUT DAILY levothyroxine 200 mcg tablet 200 mcg PO DAILY losartan 50 mg tablet 50 mg PO DAILY pioglitazone 15 mg tablet 15 mg PO DAILY rosuvastatin 10 mg tablet 10 mg PO DAILY Forms: Portal Instructions Follow Up Appointments: [facility] May 10 at 1035 F/u with Neurology in 1-2 week(office closed today Wednesday05/07/23)
[2023-05-07 13:07] LABS: ANA Direct Negative (Negative)
[2023-05-07 14:08] LABS: Albumin 3.2 g/dL (2.9-4.4); Alpha-1-Globulin 0.3 g/dL (0.0-0.4); Alpha-2-Globulin 0.9 g/dL (0.4-1.0); Gamma Globulin 0.6 g/dL (0.4-1.8); Protein, Total 6.2 g/dL (6.0-8.5)
[2023-05-10 13:07] LABS: Methylmalonic Acid, Serum 190 nmol/L (0-378)
== END 2023-05-07 12:41 ==
LOC: ER 09:44 → MS 11:46
PROVIDERS: Admitting Provider Internal Medicine; Emergency Provider Emergency Medicine; PCP Nurse Practitioner; Visit Provider Internal Medicine
DX: R53.1 Weakness (principal); E11.9 Type 2 diabetes mellitus without complications; I10 Essential (primary) hypertension; E78.5 Hyperlipidemia, unspecified; E03.9 Hypothyroidism, unspecified; R70.0 Elevated erythrocyte sedimentation rate; Z79.899 Other long term (current) drug therapy; Z79.890 Hormone replacement therapy
CPT/HCPCS: 36415; 36416; 70450; 71045; 72131; 72148; 80048; 82085; 82550; 82607; 82746; 82948; 83036; 83921; 84155; 84165; 84443; 85025; 85652; 86140; 93005; 94761; 96372; 97162; 97165; 97530; 97535; 99285; G0378

== ENCOUNTER 2025-03-28 07:40 | Outpatient (OUT) | payer MEDICARE, SELFPAY ==
--- NOTE | 2025-03-28 07:47 | MM_ITS ---
Patient Name: FERCHO MALONE MR#: [id number] : 1945 Exam Date: 03/28/2025 Ordering Doctor: CHARLIE BLAKE . RADIOLOGY REPORT PROCEDURE: MM TOMOSYNTHESIS SCREENING BI COMPARISON: None. INDICATIONS: Screening Calculator Name NCI Breast Cancer Risk Assessment Tool 5 Year Breast Cancer Risk 1.90% Lifetime Breast Cancer Risk 3.40% Personal Breast Cancer No Personal Ovarian Cancer No Treatments thyroid removal, radiation Family Cancers Father with lung cancer at age ~70. LOCATION: [facility] BREAST COMPOSITION: The breasts are heterogeneously dense, which may obscure small masses. FINDINGS: RIGHT BREAST: No significant suspicious finding. LEFT BREAST: No significant suspicious finding. DIAGNOSTIC CATEGORY 1--NEGATIVE. RECOMMENDATIONS: ROUTINE MAMMOGRAM AND CLINICAL EVALUATION IN 12 MONTHS. PLEASE NOTE: A NORMAL MAMMOGRAM DOES NOT EXCLUDE THE POSSIBILITY OF BREAST CANCER. A CLINICALLY SUSPICIOUS PALPABLE LUMP SHOULD BE BIOPSIED. Dictated by: Amos Olson MD on 03/30/2025 at 12:49 Approved by: Amos Olson MD on 03/30/2025 at 13:06
== END 2025-03-28 07:41 | disposition home or self-care (01) ==
LOC: RAD 07:41
PROVIDERS: PCP Nurse Practitioner; Visit Provider Nurse Practitioner
DX: Z12.31 Encounter for screening mammogram for malignant neoplasm of breast (principal); E28.39 Other primary ovarian failure; Z80.1 Family history of malignant neoplasm of trachea, bronchus and lung; M81.0 Age-related osteoporosis without current pathological fracture; M85.88 Other specified disorders of bone density and structure, other site
CPT/HCPCS: 77063; 77067; 77080